=== PATIENT | female | born 1975 | race Caucasian/White ===

== ENCOUNTER 2018-05-19 15:03 | Emergency (ER) | payer BC ==
[~2018-05-19] VITALS: Ht 165.1 cm; Wt 70.1 kg
[2018-05-19 15:14] VITALS: Ht 165.1 cm; Wt 70.1 kg
[2018-05-19] MEDS ORDERED: ONDANSETRON 4 MG INJ IV STA (16:22)
[2018-05-19] MEDS ORDERED: KETOROLAC 15 MG INJ IV STA (16:22)
[2018-05-19] MEDS ORDERED: SOD CHLORIDE 0.9% 1,000 ML IV STA (16:22)
--- NOTE | 2018-05-19 17:28 | ERD ---
ER Documentation Chief Complaint Chief Complaint epigastric, vomitting & diarrhea x1wk HPI 42-year-old woman complains of multiple episodes of clear nonbloody nonbilious emesis and diarrhea times 1 week, she has had some abdominal cramping as well, no fevers or chills, no chest pain or shortness of breath. ROS All systems reviewed and are negative except as per history of present illness. Medications Home Meds Active Scripts Ibuprofen* (Motrin*) 600 Mg Tab, 600 MG PO Q8 PRN for PAIN AND/OR INFLAMMATION, #30 TAB Prov:SANYA CARTER MD 05/19/18 Mag Hydrox/Al Hydrox/Simeth (Maalox Plus X-Strength Susp) 355 Ml Oral.susp, 2 TSP PO TID PRN for PAIN, #4 OZ Prov:SANYA CARTER MD 05/19/18 Ondansetron Hcl* (Zofran*) 4 Mg Tablet, 4 MG PO Q8H PRN for NAUSEA AND/OR VOMITING, #30 TAB Prov:SANYA CARTER MD 05/19/18 Allergies Allergies: Coded Allergies: No Known Allergy (Unverified , 05/19/18) FmHx Family History: No diabetes Physical Exam Vitals Vital Signs Date Temp Pulse Resp B/P (MAP) Pulse Ox O2 O2 Flow FiO2 Time Delivery Rate 05/19/18 97.9 78 18 125/72 100 Room Air 19:35 (89) 05/19/18 97.9 60 18 123/70 100 15:14 (87) Physical Exam GENERAL: Well-developed, well-nourished, well-hydrated, in no apparent distress, looks nontoxic in appearance HEENT: Moist mucous membranes, pink conjunctiva, no cervical spine tenderness or step-off deformities, no goiter, no jaundice or icterus, extraocular movements intact without pain. No submandibular induration, and no pharyngeal erythema NEURO: Alert and oriented 3, cranial nerves II through XII intact bilaterally, pupils equal round reactive to light, no focal deficits or facial asymmetry, sensation intact distally Strength 5/5 in upper and lower extremities bilaterally CARDIAC: Regular rate and rhythm, no murmurs rubs or gallops LUNGS: Clear bilaterally no wheezing crackles or stridor ABDOMEN: Soft nontender, no guarding, no rigidity, no rebound, no psoas sign no obturator sign. Normoactive bowel sounds SKIN: Warm and dry to touch, no abrasions, contusions, or hematomas, no lacerations, no ecchymosis, no target lesions, and without ulcers EXTREMITIES: No clubbing cyanosis or edema, calves are bilaterally symmetrical, no Homans sign, no popliteal cord sign. Distal pulses equal and bilateral PSYCH: Normal affect without agitation or irritability Result Diagram: 05/19/18 1632 05/19/18 1632 Results 24 hrs Laboratory Tests Test 05/19/18 16:32 05/19/18 16:36 White Blood Count 15.9 10^3/ul Red Blood Count 5.02 10^6/ul Hemoglobin 14.6 g/dl Hematocrit 43.2 % Mean Corpuscular Volume 86.1 fl Mean Corpuscular Hemoglobin 29.1 pg Mean Corpuscular Hemoglobin Concent 33.8 g/dl Red Cell Distribution Width 14.6 % Platelet Count 229 10^3/UL Mean Platelet Volume 10.6 fl Immature Granulocytes % 0.900 % Neutrophils % 78.7 % Lymphocytes % 10.2 % Monocytes % 3.8 % Eosinophils % 6.0 % Basophils % 0.4 % Nucleated Red Blood Cells % 0.0 /100WBC Immature Granulocytes # 0.140 10^3/ul Neutrophils # 12.5 10^3/ul Lymphocytes # 1.6 10^3/ul Monocytes # 0.6 10^3/ul Eosinophils # 1.0 10^3/ul Basophils # 0.1 10^3/ul Nucleated Red Blood Cells # 0.0 10^3/ul Prothrombin Time 13.5 Sec Prothrombin Time Ratio 1.1 INR International Normalized Ratio 1.02 Activated Partial Thromboplast Time 24.6 Sec Sodium Level 138 mmol/L Potassium Level 3.9 mmol/L Chloride Level 101 mmol/L Carbon Dioxide Level 27 mmol/L Anion Gap 10 Blood Urea Nitrogen 10 mg/dl Creatinine 0.74 mg/dl Est Glomerular Filtrat Rate mL/min > 60 mL/min Glucose Level 76 mg/dl Calcium Level 9.4 mg/dl Total Bilirubin 0.4 mg/dl Direct Bilirubin 0.00 mg/dl Indirect Bilirubin 0.4 mg/dl Aspartate Amino Transf (AST/SGOT) 24 IU/L Alanine Aminotransferase (ALT/SGPT) 24 IU/L Alkaline Phosphatase 66 IU/L Total Protein 7.0 g/dl Albumin 4.1 g/dl Globulin 2.90 g/dl Albumin/Globulin Ratio 1.41 Lipase 231 U/L Serum HCG, Qualitative NEGATIVE Current Medications Medications Dose Sig/Funmilayo Start Time Status Last (Trade) Ordered Route PRN Stop Time Admin Dose Reason Admin Sodium 1,000 ml @ Q1H STAT 05/19/18 DC 05/19/18 Chloride 1,000 mls/hr IV 16:22 05/19/18 17:13 17:21 Ondansetron 4 mg ONCE STAT 05/19/18 DC 05/19/18 HCl (Zofran IV 16:22 05/19/18 17:13 Inj) 16:23 Ketorolac 15 mg ONCE STAT 05/19/18 DC 05/19/18 Tromethamine IV 16:22 05/19/18 17:19 (Toradol) 16:23 Procedures/MDM IV line was established patient was placed on residential monitor rhythm strip r evealed a sinus rhythm at about 80 bpm with upright P and T waves. Patient was afebrile CBC reveals a leukocytosis and electrolytes were normal, liver function tests were normal, urine analysis negative for infection, negative for . I administered 1 L normal saline IV, Zofran 4 mg IV, Toradol [address] scan of the abdomen and pelvis was ordered, results were unremarkable, no acute inflammatory infectious pathology noted. Patient is able to tolerate p.o. and her pain is been controlled, workup here was unremarkable and patient will be discharged for continued outpatient manag ement and oral rehydration. Differential diagnoses considered, included but not limited to acute coronary syndrome, pulmonary embolism, aortic dissection, abdominal aortic aneurysm, sepsis, stroke, meningitis, encephalitis, pneumonia, appendicitis, cholecystitis, bowel obstruction, pyelonephritis, nephrolithiasis, cystitis, as well as metabolic, hematologic, and electrolyte abnormalities. As well as abscess, cellulitis, fractures, and dislocations. Patient feels much better at this time, and vital signs are normal, symptoms have improved. I did give strict instructions to return to the ED if symptoms continue or worsen, patient will otherwise follow-up with primary care physician. Patient understood instructions and agreed to plan. Disclaimer: Inadvertent spelling and grammatical errors are likely due to EHR/dictation software use and do not reflect on the overall quality of patient care. Also, please note that the electronic time recorded on this note does not necessarily reflect the actual time of the patient encounter. Departure Diagnosis: Primary Impression: Abdominal pain Abdominal location: generalized Qualified Codes: R10.84 - Generalized abdominal pain Additional Impression: Vomiting and diarrhea Condition: Good SANYA CARTER MD May 19, 2018 17:28
[2018-05-19] MEDS ORDERED: MAG355OR15 PO (18:33)
[2018-05-19] MEDS ORDERED: IBUP-1542 PO (18:33)
[2018-05-19] MEDS ORDERED: ONDA4TAB8 PO (18:33)
[2018-05-19 19:35] VITALS: BP 125/72; PULSE 78; RESP 18
== END 2018-05-19 19:37 | disposition home or self-care (01) ==
LOC: E/R 15:03
DX: R10.84 Generalized abdominal pain (principal); R11.10 Vomiting, unspecified; R19.7 Diarrhea, unspecified
CPT/HCPCS: 74176; 80053; 83690; 84703; 85025; 85610; 85730; J1885; J2405; J7030; 36415; 96374; 96375